=== PATIENT | male | born 1965 | race Caucasian/White ===

== ENCOUNTER → 2016-09-17 16:46 | Outpatient (CLI) | payer MEDICAID | END | disposition home or self-care (01) | LOC: D.MRI 16:30 | DX: M50.20 Other cervical disc displacement, unspecified cervical region (principal); M47.892 Other spondylosis, cervical region ==

== ENCOUNTER 2017-09-17 15:25 | Inpatient (IN) | payer MEDICAID ==
[~2017-09-17] VITALS: Ht 180.3 cm; Wt 159.1 kg
--- NOTE | ~2017-09-17 | HP ---
PATIENT: ARISTIDES NICHOLAS MEDICAL RECORD: [id number] ACCOUNT: [id number] LOCATION:[facility] [id number] : 65 ADMISSION DATE: 09/17/17 HISTORY AND PHYSICAL EXAMINATION DATE OF ADMISSION: 09/17/2017. CHIEF COMPLAINT: Right buttocks pain. HISTORY OF PRESENT ILLNESS: The patient is a 52-year-old gentleman of Dr. Rose who apparently had gone to the walk-in clinic, was sent to the Emergency Room for buttocks abscess. In the Emergency Room, the patient was found to have a large fluctuant draining right buttocks abscess measuring approximately 15 x 15 cm. It was felt that the patient should be admitted for surgical I&D. PAST MEDICAL HISTORY: Significant that he has had a history of having hypertension. He has had morbid obesity. He has also had back pain. He has had no cervical as well as lumbar surgery in the past. He had a cholecystectomy. He has had depression and hypertension. SOCIAL HISTORY: The patient is born in [place], [place], currently lives in [place]. Apparently, he is unemployed at the present time. FAMILY HISTORY: Father of myocardial infarction. Mother's history is unknown. HABITS: The patient is a 1 pack per day smoker. He denies any alcohol use. He is . The patient has also had a knee surgery in the past. MEDICATIONS: Include Wellbutrin 300 mg 1 p.o. every day, Cymbalta 60 mg once a day, metoprolol 50 mg p.o. every day. ALLERGIES: He has known drug allergies. REVIEW OF SYSTEMS: CONSTITUTIONAL: He has had a headache. He denies any visual or auditory changes. CARDIOVASCULAR: He denies any chest pain, palpitation, PND, or orthopnea. GASTROINTESTINAL: No chronic nausea, vomiting, melena, or hematochezia. GENITOURINARY: No urgency, frequency, or dysuria. PHYSICAL EXAMINATION: GENERAL: He is a morbidly obese white male who is in mild distress. VITAL SIGNS: His temperature 97.3, his pulse was 115, respirations 22, blood pressure 134/72. HEENT: Head is normocephalic. No lesions. Ears: TMs clear. Eyes: Pupils equal, round, and reactive to light and his extraocular movements are intact. Nasal cavity, oral cavity, oropharynx clear. NECK: Supple. There is no adenopathy. HEART: He has a regular rate without any murmurs, gallops, or rubs. LUNGS: Clear to auscultation. He has a very large fluctuant right buttocks abscess with central fluctuance present approximately 15 x 15 cm. ASSESSMENT: Right buttocks abscess, morbid obesity, history of chronic neck and HISTORY AND PHYSICAL [id number] ARISTIDES NICHOLAS low back pain with prior surgeries, depression, and hypertension. PLAN: The patient will be admitted, will be continued on clindamycin. He will also be given Bactroban ointment to use intranasally. Surgical consultation will be obtained for I&D. TRANSINT:[id number] Voice Confirmation ID: [id number] DOCUMENT ID: [id number] JOSÉ MIGUEL HERBERT MD at 1426 CC: [id number] DICTATION DATE: 09/18/17914 PHOTO OPTICS TECHNICIAN: 09/18/17 1149 ADM IN [facility] [address] [place] [address]
--- NOTE | ~2017-09-17 | CN ---
PATIENT NAME:ARISTIDES NICHOLAS MEDICAL RECORD: [id number] : 65 LOCATION:[facility] ADMIT DATE: 09/18/17 ACCOUNT: [id number] CONSULTING PHYSICIAN: HILDA CHOU MD REFERRING PHYSICIAN: KURT CORONADO DO DATE OF CONSULTATION: 09/18/2017 CHIEF COMPLAINT: Pain. HISTORY: The patient presented to the Emergency Room with a buttock abscess. He was seen in a walk-in clinic and was told to come to the hospital. The patient has a large carbuncle involving the buttock. I do not believe that this represents perirectal abscess. It is too far lateral on the buttock. The area was erythematous and has multiple draining areas, draining purulence. There is no necrotic eschar. I am going to plan for excisional debridement in the operating room. Palpation aggravates. Nothing alleviates. Symptoms began 3 days prior to presentation to the Emergency Room. The pain is a throbbing type of pain. It is of moderate intensity. Palpation aggravates. Nothing alleviates. PAST MEDICAL AND SURGICAL HISTORY: Two back operations, depression, hypertension, history of cholecystectomy. HOME MEDICINES: Metoprolol, Cymbalta, buspirone. FAMILY HISTORY: Noncontributory. ALLERGIES: TOMATOES. REVIEW OF SYSTEMS: No fever. Positive for rash. No lymphadenopathy. No nausea. No chest pain. No shortness of breath. No back pain. No confusion. No agitation. Positive for buttocks swelling. PHYSICAL EXAMINATION: GENERAL: He does appear acutely ill. He does not appear chronically ill. VITAL SIGNS: Reviewed. EARS: External ears appear normal. EYES: Extraocular movements are intact. NECK: Trachea is midline. CHEST: No intercostal retractions. PULMONARY: Nonlabored. No stridor. INTEGUMENT: As described above. BACK: No thoracic kyphosis. LYMPHATICS: No lymphangitic streaking of the exposed extremities. PSYCHIATRIC: Normal affect. IMPRESSION: Right buttock carbuncle. PLAN: Excisional debridement with marsupialization and packing. Continue IV antibiotics. TRANSINT:[id number] Voice Confirmation ID: [id number] DOCUMENT ID: [id number] CONSULT REPORT [id number] ARISTIDES NICHOLAS ROBERT MD at 0938 CC: KURT CORONADO DO [id number] DICTATION DATE: 09/19/17 1213 REWRITE EDITOR: 09/19/17 1526 ADM IN [facility] [address] [place] [id number]
--- NOTE | ~2017-09-17 | OP ---
PATIENT NAME: ARISTIDES NICHOLAS MEDICAL RECORD: [id number] :65 LOCATION:[id number] ADMISSION DATE:09/18/17 SURGEON: HILDA CHOU MD DATE OF OPERATION: 09/19/2017 PREOPERATIVE DIAGNOSIS: Right buttock abscess. POSTOPERATIVE DIAGNOSIS: Right buttock abscess. Please see dimensions below. PROCEDURE: Excisional debridement of right buttock abscess. Dimensions of debridement, including margins, measured 3.6 cm x 2.5 cm and was 1.8 cm in depth. I debrided back sharply to viable bleeding tissue. I then marsupialized and packed the wound. SURGEON: Hilda Chou MD SCIENTIFIC AFFAIRS MANAGER: None. BLOOD LOSS: Minimal. ANESTHESIA: General. COMPLICATIONS: None. The risks, possible complications, and alternatives to procedure were explained to the patient. He elects to proceed. OPERATIVE COURSE: The patient was conveyed to operating room electively on 09/19/2017. General anesthesia was induced by the anesthesia staff. The patient was placed in the full lateral decubitus position with the left side down. The right buttock was sterilely prepped and draped. An excisional debridement was performed with a scalpel. I then curetted out the abscess cavity. Meticulous hemostasis was achieved with the electrocautery. The dimensions of the debridement are listed above. I then marsupialized the wound with a running locking 3-0 Vicryl Rapide suture. I then packed the wound with 2-inch Kerlix soaked in hydrogen peroxide. A sterile dressing was then applied. The patient was then extubated and conveyed to post-anesthesia care unit where he was in stable condition. I am going to plan to keep the packing in place for 3 days and keep him on IV antibiotics. I anticipate that he can be dismissed home on the third postoperative day. TRANSINT:[id number] Voice Confirmation ID: [id number] DOCUMENT ID: [id number] HILDA CHOU MD at 0938 CC: KURT CORONADO DO and JOSÉ MIGUEL HERBERT MD [id number] DICTATION DATE: 09/19/17 1219 AIRCRAFT ENGINE CYLINDER MECHANIC: 09/19/17 1546 [place] [address]
[2017-09-17 17:33] LABS: BASOPHILS 0.2 % (0-2); EOSINOPHILS 2.1 % (0-7); HEMATOCRIT 41.4 % (42.0-54.0); HEMOGLOBIN 13.3 g/dL (13.5-17.5); IMMATURE GRANULOCYTES 0.8 % (0-5); LYMPHOCYTES 19.6 % (15-50); MCH 29.2 pg (26.0-34.0); MCHC 32.1 g/dL (31.0-37.0); MCV 90.8 fL (80.0-100.0); MEAN PLATELET VOLUME 10.7 fL (7.4-10.4); NEUTROPHILS 66.3 % (40-80); PLATELET COUNT 194 10x3/uL (130-400); RBC 4.56 10x6/uL (4.20-6.10); RDW 13.8 % (11.5-14.5); WBC 8.9 10x3/uL (4.8-10.8)
[2017-09-17 17:48] LABS: ALBUMIN 3.4 g/dL (3.4-5.0); ALKALINE PHOSPHATASE 70 U/L (46-116); ALT (SGPT) 50 U/L (10-68); BILIRUBIN - TOTAL 0.59 mg/dL (0.2-1.3); CALC OSMOLALITY 281 mosm/kg (275-300); CALCIUM 9.4 mg/dL (8.5-10.1); CARBON DIOXIDE 29.3 mmol/L (21.0-32.0); CHLORIDE - SERUM 102 mmol/L (98-107); GLUCOSE 100 mg/dL (74-106); MAGNESIUM - SERUM 2.5 mg/dL (1.8-2.4); SODIUM 140 mmol/L (136-145); UREA NITROGEN 20 mg/dL (7-18); eGFR NON AFRICAN AMERICAN 83 mL/min (90-120)
[2017-09-17 17:53] LABS: INR 0.97 (0.85-1.17); PROTIME 12.5 SECONDS (11.6-15.0)
[2017-09-17] MEDS ORDERED: TOPROL XL100 MG PO (19:47)
[2017-09-17] MEDS ORDERED: DUEXIS 800-26.1 EACH PO (19:48)
[2017-09-17] MEDS ORDERED: CYMBALTA60 MG PO (19:48)
[2017-09-17] MEDS ORDERED: WELLBUTRIN XL150 M1 PO (19:48)
[2017-09-17 23:31] VITALS: BP 139/85; Ht 180.3 cm; Wt 159.1 kg
[2017-09-18] VITALS: BP 124/72
[2017-09-18 04:00] VITALS: BP 107/57
[2017-09-18 08:44] VITALS: BP 100/47
[2017-09-18 16:36] VITALS: BP 101/49
[2017-09-18 20:00] VITALS: BP 105/55
[2017-09-19] VITALS (10 sets, daily range): BP systolic 87–162; BP diastolic 47–78
[2017-09-19 03:55] LABS: BASOPHILS 0.2 % (0-2); EOSINOPHILS 2.6 % (0-7); HEMATOCRIT 40.9 % (42.0-54.0); HEMOGLOBIN 13.1 g/dL (13.5-17.5); IMMATURE GRANULOCYTES 0.2 % (0-5); LYMPHOCYTES 16.4 % (15-50); MCH 29.6 pg (26.0-34.0); MCV 92.3 fL (80.0-100.0); MEAN PLATELET VOLUME 9.6 fL (7.4-10.4); MONOCYTES 9.8 % (2-11); NEUTROPHILS 70.8 % (40-80); PLATELET COUNT 227 10x3/uL (130-400); RBC 4.43 10x6/uL (4.20-6.10); RDW 13.3 % (11.5-14.5); WBC 10.5 10x3/uL (4.8-10.8)
[2017-09-19 04:14] LABS: CALC OSMOLALITY 275 mosm/kg (275-300); CALCIUM 8.5 mg/dL (8.5-10.1); CARBON DIOXIDE 27.3 mmol/L (21.0-32.0); CHLORIDE - SERUM 100 mmol/L (98-107); GLUCOSE 117 mg/dL (74-106); POTASSIUM - SERUM 3.9 mmol/L (3.5-5.1); SODIUM 137 mmol/L (136-145); UREA NITROGEN 15 mg/dL (7-18); eGFR NON AFRICAN AMERICAN 83 mL/min (90-120)
[2017-09-20] VITALS (7 sets, daily range): BP systolic 90–122; BP diastolic 51–81
[2017-09-20 04:38] LABS: BASOPHILS 0.3 % (0-2); EOSINOPHILS 2.7 % (0-7); HEMATOCRIT 39.4 % (42.0-54.0); HEMOGLOBIN 12.7 g/dL (13.5-17.5); IMMATURE GRANULOCYTES 0.3 % (0-5); LYMPHOCYTES 20.3 % (15-50); MCH 29.9 pg (26.0-34.0); MCHC 32.2 g/dL (31.0-37.0); MCV 92.7 fL (80.0-100.0); MEAN PLATELET VOLUME 9.2 fL (7.4-10.4); MONOCYTES 11.5 % (2-11); NEUTROPHILS 64.9 % (40-80); PLATELET COUNT 232 10x3/uL (130-400); RBC 4.25 10x6/uL (4.20-6.10); RDW 13.5 % (11.5-14.5)
[2017-09-20 04:42] LABS: WBC 7.3 10x3/uL (4.8-10.8)
[2017-09-20 04:51] LABS: ALBUMIN 2.8 g/dL (3.4-5.0); ALKALINE PHOSPHATASE 75 U/L (46-116); ALT (SGPT) 43 U/L (10-68); BILIRUBIN - TOTAL 0.62 mg/dL (0.2-1.3); CALC OSMOLALITY 276 mosm/kg (275-300); CALCIUM 8.7 mg/dL (8.5-10.1); CARBON DIOXIDE 29.1 mmol/L (21.0-32.0); CHLORIDE - SERUM 102 mmol/L (98-107); GLUCOSE 104 mg/dL (74-106); MAGNESIUM - SERUM 2.3 mg/dL (1.8-2.4); PHOSPHOROUS 3.5 mg/dL (2.5-4.9); POTASSIUM - SERUM 3.9 mmol/L (3.5-5.1); PROTEIN - SERUM 6.5 g/dL (6.4-8.2); SODIUM 138 mmol/L (136-145); UREA NITROGEN 16 mg/dL (7-18); eGFR NON AFRICAN AMERICAN 83 mL/min (90-120)
[2017-09-20 06:57] LABS: APPEARANCE HAZY (CLEAR); BILIRUBIN NEGATIVE (NEGATIVE); COLOR DK YELLOW (YELLOW); GLUCOSE NEGATIVE (NEGATIVE); KETONE NEGATIVE (NEGATIVE); NITRITE NEGATIVE (NEGATIVE); PROTEIN NEGATIVE (NEGATIVE); SPECIFIC GRAVITY 1.025 (1.005-1.020); UROBILINOGEN NORMAL (NORMAL); WHITE CELLS - URINE 0-5 /hpf (0-5)
[2017-09-20 06:58] LABS: BACTERIA FEW /hpf (NONE SEEN); EPITHELIAL CELLS 0-5 /hpf (0-5); MUCUS >1+ /lpf (NONE SEEN)
[2017-09-21 02:03] VITALS: BP 117/61
[2017-09-21 04:43] LABS: HEMATOCRIT 38.8 % (42.0-54.0); LYMPHOCYTES 24.9 % (15-50); MCH 29.8 pg (26.0-34.0); MCHC 33.5 g/dL (31.0-37.0); MEAN PLATELET VOLUME 8.4 fL (7.4-10.4); NEUTROPHILS 62.8 % (40-80); PLATELET COUNT 226 10x3/uL (130-400); RBC 4.36 10x6/uL (4.20-6.10); RDW 12.8 % (11.5-14.5); WBC 6.2 10x3/uL (4.8-10.8)
[2017-09-21 05:16] LABS: ALBUMIN 2.8 g/dL (3.4-5.0); ALKALINE PHOSPHATASE 72 U/L (46-116); ALT (SGPT) 39 U/L (10-68); BILIRUBIN - TOTAL 0.53 mg/dL (0.2-1.3); CALC OSMOLALITY 274 mosm/kg (275-300); CALCIUM 8.6 mg/dL (8.5-10.1); CARBON DIOXIDE 29.9 mmol/L (21.0-32.0); CHLORIDE - SERUM 101 mmol/L (98-107); GLUCOSE 92 mg/dL (74-106); POTASSIUM - SERUM 3.8 mmol/L (3.5-5.1); PROTEIN - SERUM 6.5 g/dL (6.4-8.2); SODIUM 137 mmol/L (136-145); UREA NITROGEN 15 mg/dL (7-18); eGFR NON AFRICAN AMERICAN 83 mL/min (90-120)
[2017-09-21 05:50] VITALS: BP 106/59
[2017-09-21 08:04] VITALS: BP 125/67
[2017-09-21 12:17] VITALS: BP 107/53
[2017-09-21 15:45] VITALS: BP 121/65
[2017-09-21 20:00] VITALS: BP 135/72
[2017-09-22] VITALS: BP 130/70
[2017-09-22 04:00] VITALS: BP 94/44
[2017-09-22 04:23] LABS: BASOPHILS 0.5 % (0-2); EOSINOPHILS 3.1 % (0-7); HEMATOCRIT 42.2 % (42.0-54.0); HEMOGLOBIN 14.1 g/dL (13.5-17.5); IMMATURE GRANULOCYTES 0.3 % (0-5); LYMPHOCYTES 27.1 % (15-50); MCH 30.3 pg (26.0-34.0); MCHC 33.4 g/dL (31.0-37.0); MCV 90.8 fL (80.0-100.0); MONOCYTES 11.2 % (2-11); NEUTROPHILS 57.8 % (40-80); PLATELET COUNT 249 10x3/uL (130-400); RBC 4.65 10x6/uL (4.20-6.10); WBC 6.4 10x3/uL (4.8-10.8)
[2017-09-22 04:44] LABS: CALC OSMOLALITY 277 mosm/kg (275-300); CALCIUM 9.1 mg/dL (8.5-10.1); CARBON DIOXIDE 27.8 mmol/L (21.0-32.0); CHLORIDE - SERUM 102 mmol/L (98-107); CREATININE - SERUM 0.9 mg/dL (0.6-1.3); GLUCOSE 92 mg/dL (74-106); POTASSIUM - SERUM 3.7 mmol/L (3.5-5.1); SODIUM 139 mmol/L (136-145); UREA NITROGEN 13 mg/dL (7-18); eGFR NON AFRICAN AMERICAN > 90 mL/min (90-120)
[2017-09-22] MEDS ORDERED: NORCO 7.5/325 T1 TA1 PO (06:54)
[2017-09-22] MEDS ORDERED: BACTRIM DS TABL1 TAB PO (06:55)
[2017-09-22 07:48] VITALS: BP 119/69
== END 2017-09-22 17:27 | disposition home health service (06) | DRG 603 ==
LOC: D.ER 15:25 → D.MS 19:02 → OBSVTIME 19:02 → D.MS 09-18 20:01
PROVIDERS: Emergency Medicine; Family Medicine; Nurse Practitioner Family; Surgery
PROC: 0HB8XZZ Excision of Buttock Skin, External Approach (ICD-10-PCS; principal; 2017-09-19 09:30)
DX: L02.31 Cutaneous abscess of buttock (principal); Z68.42 Body mass index [BMI] 45.0-49.9, adult; E66.01 Morbid (severe) obesity due to excess calories; F17.200 Nicotine dependence, unspecified, uncomplicated; B95.62 Methicillin resistant Staphylococcus aureus infection as the cause of diseases classified elsewhere